=== PATIENT | male | born 1985 | race Caucasian/White ===

== ENCOUNTER 2023-10-22 17:49 | Emergency (ER) | payer OTHER ==
[~2023-10-22] VITALS: Ht 193 cm; Wt 81.8 kg
[2023-10-22 19:00] VITALS: BP 135/86
[2023-10-22 19:05] LABS: BASO% 0.7 % (0-3); EOS% 1.2 % (0-8); HEMATOCRIT 37.2 % (39.0-50.0); HEMOGLOBIN 12.8 g/dl (14.0-18.0); IMMATURE GRANULOCYTES 0.1 % (0.0-5.0); LYMPH% 9.2 % (15-41); MEAN CELL VOLUME 90.5 fL CALC (80.0-100.0); MEAN CORPUSCULAR HGB 31.1 pG CALC (26.0-32.0); MEAN CORPUSCULAR HGB CONC 34.4 g/dL CAL (32.0-36.0); MONO% 6.6 % (2-13); NEUT# 8.05 thou/uL (1.82-7.42); NEUT% 82.2 % (42-76); RED BLOOD COUNT 4.11 mill/uL (4.70-6.10); RED CELL DISTRI WIDTH 11.4 % (11.5-15.5)
[2023-10-22 19:06] LABS: ALBUMIN 4.3 g/dL (3.2-5.0); ALKALINE PHOSPHATASE 66 u/l (38-126); ANION GAP 12 (6-22 (CALC)); BILIRUBIN, TOTAL 0.4 mg/dL (0.2-1.3); BUN 20 mg/dL (9-20); BUN/CREATININE RATIO 17 (12-20 (CALC)); CARBON DIOXIDE 28 mmol/l (22-30); CHLORIDE 102 mmol/l (95-108); CREATININE 1.2 mg/dL (0.7-1.3); GFR FOR AFR.AMER. > 60 ML/MIN (>=60 (CALC)); GFR OTHER RACES > 60 ML/MIN (>=60 (CALC)); POTASSIUM 3.9 mmol/l (3.5-5.1); SGOT/AST 35 u/l (17-59); SODIUM 138 mmol/l (137-146); TOTAL PROTEIN 6.5 g/dL (6.3-8.2)
[2023-10-22 19:15] VITALS: BP 117/66
[2023-10-22 19:31] VITALS: BP 109/70
[2023-10-22 19:45] VITALS: BP 131/70
[2023-10-22] MEDS ORDERED: NAPROXEN500 MG PO (19:47)
[2023-10-22 20:00] VITALS: BP 130/79
[2023-10-22 20:05] VITALS: BP 130/79
== END 2023-10-22 20:11 | DRG 563 ==
LOC: ED 17:49
PROVIDERS: Nurse Practitioner
PROC: 0RSJXZZ Reposition Right Shoulder Joint, External Approach (ICD-10-PCS; principal; 2023-10-22)
DX: M24.411 Recurrent dislocation, right shoulder (principal)